=== PATIENT | female | born 1995 ===

== ENCOUNTER 2019-06-17 15:12 | Outpatient (CLI) | payer MEDICAID ==
--- NOTE | 2019-06-17 16:59 | ULT ---
PELVIC ULTRASOUND: 06/17/19 HISTORY: Unable to localize threads of intrauterine contraceptive device. COMPARISON: None. FINDINGS: Multiple transabdominal sonographic images of the pelvis are obtained. The uterus has a normal appearance measuring 8.4 cm x 3.2 cm x 5.2 cm. There is an echogenic structur e seen within the endometrial canal with transverse obtained image demonstrating what appears to be t holland-track echogenic structure within the endometrial canal corresponding to patient's intrauterine co ntraceptive device. The endometrial stripe measures 0.5 cm in thickness which is within normal limits for the patient's age. The right ovary measures 2.5 cm x 1.7 cm x 2.7 cm with the left ovary measuring 2.8 cm x 1.8 cm x 2.1 cm. There is a 1.7 cm anechoic structure seen within the left ovary most compatible with a dominant follicle. Doppler evaluation of each ovary with spectral analysis and color flow evaluation demonstrates flow i n each ovary. No free fluid is seen in the cul-de-sac. IMPRESSION: 1. Echogenic structure demonstrating tram-track appearance within the endometrial canal likely c orresponding to patient's intrauterine contraceptive device. No fluid or fluid collection is seen in the endometrial canal. 2. Normal appearing bilateral ovaries with dominant follicle in the right ovary. POS: [facility]
== END 2019-06-17 15:13 | disposition home or self-care (01) ==
LOC: BICULT 15:12
DX: T83.32XA Displacement of intrauterine contraceptive device, initial encounter (principal); R93.89 Abnormal findings on diagnostic imaging of other specified body structures
CPT/HCPCS: 76856; 93976